=== PATIENT | male | born 1975 | race Asian ===

== ENCOUNTER 2021-09-28 13:09 | Emergency (ER) | payer SELFPAY ==
[2021-09-28] MEDS ORDERED: LIDOCAINE 1% MPF 5 ML VIAL ONE (14:32)
--- NOTE | 2021-09-28 15:19 | EDPHYS ---
Physician Documentation [facility] Name: Nga Cota Age: 46 yrs Sex: Male : 1975 Arrival Date: 09/28/2021 Time: 13:12 Bed 9 Private MD: ED Physician Belinda Powell HPI: 09/28 15:04 This 46 yrs old Male presents to ER via Ambulatory with complaints of Insect Bite.kb 15:04 The patient presents with an abscess of the right quadriceps. Description: kb erythematous, fluctuant, swollen. Onset: The symptoms/episode began/occurred today. Possible cause(s): unknown. Associated signs and symptoms: Pertinent positives: swelling, Pertinent negatives: discharge, drainage, erythema, foreign body sensation, fever, headache, nausea, shortness of breath, vomiting. Modifying factors: the symptoms are alleviated by nothing, the symptoms are aggravated by touching. Severity of symptoms: At their worst the symptoms were moderate, in the emergency department the symptoms are unchanged. The patient has not experienced similar symptoms in the past. The patient has not recently seen a physician. 15:06 Pt reports he noticed an abscess to top of right thigh today. . kb Historical: - Allergies: 13:37 No Known Allergies; iw - Home Meds: 13:37 None [Active]; iw - PMHx: 13:37 None; iw - PSHx: 13:37 back; iw - Immunization history:: Adult Immunizations up to date, Client reports having NOT received the Covid vaccine. - Social history:: Smoking status: Patient denies any tobacco usage or history of. ROS: 15:03 Constitutional: Negative for fever, chills, and weight loss. kb 15:03 Skin: Positive for abscess. 15:03 All other systems are negative. Exam: 15:03 Constitutional: This is a well developed, well nourished patient who is awake, alert, kb and in no acute distress. Head/Face: Normocephalic, atraumatic. ENT: Moist Mucous membranes Respiratory: Respirations even and unlabored. No increased work of breathing. Talking in full sentences MS/ Extremity: Pulses equal, no cyanosis. Neurovascular intact. Full, normal range of motion. Neuro: Awake and alert, GCS 15, oriented to person, place, time, and situation. Moves all extremities. Normal gait. Psych: Awake, alert, with orientation to person, place and time. Behavior, mood, and affect are within normal limits. 15:03 Skin: abscess, that is moderate sized, of the right quadriceps, with fluctuance, that is marked. Vital Signs: 13:36 Resp 16 S; Temp 98.3; Pulse Ox 98% on R/A; Weight 108.86 kg; Height 6 ft. 4 in. (193.04 iw cm); 15:04 BP 132 / 88; Pulse 82; Resp 18; Pulse Ox 99% on R/A; ld1 13:36 Body Mass Index 29.21 (108.86 kg, 193.04 cm) iw Procedures: 15:17 I \T\ D: Incision and drainage was performed for an abscess of the right quadriceps kb Prepped with Betadine, Anesthetized with 1 ml's 1% Lidocaine. Incised with #11 blade. Drained moderate amount purulent fluid. Dressing: sterile 4x4 gauze, the patient tolerated the procedure well. MDM: 13:54 Patient medically screened. kb 15:02 Data reviewed: vital signs, nurses notes. Data interpreted: Pulse oximetry: on room air kb is 98 %. Interpretation: normal. Counseling: I had a detailed discussion with the patient and/or guardian regarding: the historical points, exam findings, and any diagnostic results supporting the discharge/admit diagnosis, the need for outpatient follow up, a family practitioner. 09/28 14:29 Order name: I\T\D Setup; Complete Time: 14:35 kb Administered Medications: 15:30 Drug: Bactrim (trimethoprim-sulfamethoxazole) (160 mg-800 mg (DS) 1 tablet Route: PO; ld1 15:30 Follow up: Response: No adverse reaction ld1 Disposition: 22:32 Co-signature as Attending Physician, Belinda Powell MD I agree with the assessment and sp3 plan of care. Disposition Summary: 09/28/21 15:19 Discharge Ordered Location: Home kb Condition: Stable kb Diagnosis - Cutaneous abscess of right lower limb kb Followup: kb - With: Emergency Department - When: As needed - Reason: Worsening of condition Followup: kb - With: Private Physician - When: 2 - 3 days - Reason: Recheck today's complaints, Continuance of care, Re-evaluation by your physician Discharge Instructions: - Discharge Summary Sheet kb - Skin Abscess, [id number] kb - Incision and Drainage, Care After kb Forms: - Medication Reconciliation Form kb - Thank You Letter kb - Antibiotic Education kb - Prescription Opioid Use kb Prescriptions: - Bactrim DS 800-160 mg Oral Tablet - take 1 tablet by ORAL route every 12 hours for 7 days; 14 tablet; Refills: 0, kb Product Selection Permitted Signatures: Keke Fitzpatrick, MIGUELINA-C MIGUELINA-Sharda Holguin RN RN iw Monika Glover RN RN ld1 Belinda Powell MD MD sp3 Corrections: (The following items were deleted from the chart) 15:03 15:02 Counseling: I had a detailed discussion with the patient and/or guardian kb regarding: the historical points, exam findings, and any diagnostic results supporting the discharge/admit diagnosis, the need for outpatient follow up, kb
--- NOTE | 2021-09-28 15:19 | ER ---
Nurse's Notes [facility] Name: Nga Cota Age: 46 yrs Sex: Male : 1975 Arrival Date: 09/28/2021 Time: 13:12 Bed 9 Private MD: Diagnosis: Cutaneous abscess of right lower limb Presentation: 09/28 13:36 Chief complaint: Patient states: has a boil or cyst on his right upper thigh, is unsure iw how long it has been there, it was small but it got bigger while he was at work today. Coronavirus screen: At this time, the client does not indicate any symptoms associated with coronavirus-19. Ebola Screen: Patient negative for fever greater than or equal to 101.5 degrees Fahrenheit, and additional compatible Ebola Virus Disease symptoms Patient denies exposure to infectious person. Patient denies travel to an Ebola-affected area in the 21 days before illness onset. No symptoms or risks identified at this time. Initial Sepsis Screen: Does the patient meet any 2 criteria? No. Patient's initial sepsis screen is negative. Does the patient have a suspected source of infection? No. Patient's initial sepsis screen is negative. Risk Assessment: Do you want to hurt yourself or someone else? Patient reports no desire to harm self or others. Onset of symptoms was September 28, 2021. 13:36 Method Of Arrival: Ambulatory iw 13:36 Acuity: HERIBERTO 4 iw Historical: - Allergies: 13:37 No Known Allergies; iw - Home Meds: 13:37 None [Active]; iw - PMHx: 13:37 None; iw - PSHx: 13:37 back; iw - Immunization history:: Adult Immunizations up to date, Client reports having NOT received the Covid vaccine. - Social history:: Smoking status: Patient denies any tobacco usage or history of. Screenin:56 Abuse screen: Denies threats or abuse. Denies injuries from another. Nutritional iw screening: No deficits noted. Tuberculosis screening: No symptoms or risk factors identified. 15:03 Fall Risk None identified. ld1 Assessment: 13:55 General: Appears in no apparent distress. Behavior is calm, cooperative. Pain: Denies iw pain. Neuro: Level of Consciousness is awake, alert, obeys commands, Oriented to person, place, time, situation, Moves all extremities. Full function. Cardiovascular: Patient's skin is warm and dry. Respiratory: Airway is patent Respiratory effort is even, unlabored, Respiratory pattern is regular, symmetrical. GI: No signs and/or symptoms were reported involving the gastrointestinal system. Derm: Skin is intact, is healthy with good turgor, Skin is pink, warm \T\ dry. Abscess located on right upper thigh is half dollar sized, is raised. Musculoskeletal: Range of motion: intact in all extremities. Vital Signs: 13:36 Resp 16 S; Temp 98.3; Pulse Ox 98% on R/A; Weight 108.86 kg; Height 6 ft. 4 in. (193.04 iw cm); 15:04 BP 132 / 88; Pulse 82; Resp 18; Pulse Ox 99% on R/A; ld1 13:36 Body Mass Index 29.21 (108.86 kg, 193.04 cm) iw ED Course: 13:12 Patient arrived in ED. kc5 13:24 Victorina Kemp, RN is Primary Nurse. ll3 13:25 Belinda Powell MD is Attending Physician. sp3 13:37 Triage completed. iw 13:47 Arm band placed on. iw 13:54 Keke Fitzpatrick [facility]C [facility]. kb 15:03 Monika Glover, RN is Primary Nurse. ld1 15:03 Patient has correct armband on for positive identification. Placed in gown. Bed in low ld1 position. Call light in reach. Side rails up X2. Pulse ox on. NIBP on. Door closed. Noise minimized. Warm blanket given. 15:03 Assist provider with I \T\ D: of an abscess on right thigh Set up I\T\D tray. Performed by ld 1 Keke WATTS. 15:30 Patient did not have IV access during this emergency room visit. ld1 Administered Medications: 15:30 Drug: Bactrim (trimethoprim-sulfamethoxazole) (160 mg-800 mg (DS) 1 tablet Route: PO; ld1 15:30 Follow up: Response: No adverse reaction ld1 Outcome: 15:19 Discharge ordered by . kb 15:30 Discharged to home ambulatory. ld1 15:30 Condition: stable 15:30 Discharge instructions given to patient, Instructed on discharge instructions, follow up and referral plans. medication usage, Demonstrated understanding of instructions, medications, Prescriptions given X 1. 15:30 Patient left the ED. ld1 Signatures: Keke Fitzpatrick, MIGUELINA-C [employer]-Sharda Holguin RN RN iw Monika Glover RN RN ld1 Belinda Powell MD MD sp3 Victorina Kemp RN RN ll3 Anastasia Cummings 5
[2021-09-28] MEDS ORDERED: SMZ./TMP. 800/160 MG TABLET ONE (15:25)
[2021-09-28 16:06] VITALS: TEMP 98.3
[2021-09-28 16:08] VITALS: BP 132/88; O2SAT 99
== END 2021-09-28 15:30 | disposition home or self-care (01) ==
LOC: ER 13:09
PROC: 0J9N0ZZ Drainage of Right Lower Leg Subcutaneous Tissue and Fascia, Open Approach (ICD-10-PCS; principal; 2021-09-28)
DX: L02.415 Cutaneous abscess of right lower limb (principal)
CPT/HCPCS: 99284